=== PATIENT | male | born 1975 | race Two or more races ===

== ENCOUNTER → 2016-12-19 | Outpatient (REF) | payer OTHER ==
[~2016-12-19] MED LIST: ACET65TA; COLA100C2; FLEXERIL; No Historical Meds; PERC5TAB8; VITA500T
== END ==
LOC: M SMT 12:40
PROVIDERS: ATTEND Nurse Practitioner Family
DX: N50.819 Testicular pain, unspecified (principal)

== ENCOUNTER → 2017-03-04 | Outpatient (CLI) | payer OTHER ==
[~2017-03-04] VITALS: Ht 177.8 cm; Wt 95.7 kg
[~2017-03-04] MED LIST changes: +AMBI12.52 PO; +BUPR300T34 PO; +CELE-19 PO; +ESOM1CAP5 PO; +HYDR1CAP25 PO; +LIDO5TD TD; +LIDOCAINE 2% INJ 100 MG/5 ML SDV (FOR ANES.) As Ordered ONE; +NS 1,000 ML IV SCH; +PRAZ2CAP PO; +PRAZ5CAP PO; +PROPOFOL 200 MG/20 ML VIAL As Ordered ONE; +TIZA4CAP3 PO; +TOPA100T8 PO; +TYLE325T5 PO; +VITA100037 PO; +ZOLO100T PO; +[UNRECOGNIZED DRUG - CODE] SC
--- NOTE | 2017-03-04 13:44 | ROOR ---
Patient Name: Anthony Rincon Procedure Date: 03/04/2017 1:31 PM Date of : 1975 Age: 41 Room: [facility] Gender: Male Note Status: Finalized Procedure: Upper GI endoscopy + Biopsies Indications: Heartburn, Failure to respond to medical treatment Providers: Victor M Miramontes MD Referring MD: KRYSTA CHAPARRO MD Requesting Provider: Medicines: Monitored Anesthesia Care Complications: No immediate complications. Procedure: Pre-Anesthesia Assessment: - The heart rate, respiratory rate, oxygen saturations, blood pressure, adequacy of pulmonary ventilation, and response to care were monitored throughout the procedure. The Endoscope was introduced through the mouth, and advanced to the second part of duodenum. The upper GI endoscopy was accomplished without difficulty. The patient tolerated the procedure well. Findings: The Z-line was regular and was found 40 cm from the incisors. Multiple biopsies were obtained with cold forceps for evaluation to rule out Nina's Esophagus randomly at the gastroesophageal junction. No other significant abnormalities were identified in a careful examination of the stomach. The exam of the duodenum was otherwise normal. Impression: - Z-line regular, 40 cm from the incisors. - Multiple biopsies were obtained at the gastroesophageal junction. - The examination was otherwise normal. Recommendation: - Patient has a contact number available for emergencies. The signs and symptoms of potential delayed complications were discussed with the patient. Return to normal activities tomorrow. Written discharge instructions were provided to the patient. - High fiber diet. - Discharge patient to home. - Continue present medications. - Follow an antireflux regimen. - Await pathology results. - Telephone GI clinic for pathology results in 1 week. - Check Portal Online for Path Results.([email or web address]) - The findings and recommendations were discussed with the patient's family. Victor M Miramontes MD Victor M Miramontes MD 03/04/2017 1:43:57 PM This report has been signed electronically. Number of Addenda: 0 Note Initiated On: 03/04/2017 1:31 PM Estimated Blood Loss: Estimated blood loss: none.
[2017-03-04 14:10] VITALS: BP 125/76
== END | disposition home or self-care (01) ==
LOC: M OPP 12:59
PROVIDERS: ATTEND Internal Medicine Gastroenterology
DX: R12 Heartburn (principal); I10 Essential (primary) hypertension; M19.90 Unspecified osteoarthritis, unspecified site; M54.2 Cervicalgia; F41.9 Anxiety disorder, unspecified; F32.9 Major depressive disorder, single episode, unspecified; F43.10 Post-traumatic stress disorder, unspecified; K21.9 Gastro-esophageal reflux disease without esophagitis; R06.83 Snoring; Z87.828 Personal history of other (healed) physical injury and trauma; Z98.1 Arthrodesis status; Z79.899 Other long term (current) drug therapy

== ENCOUNTER → 2017-03-27 | Outpatient (CLI) | payer OTHER ==
[~2017-03-27] MED LIST changes: -LIDOCAINE 2% INJ 100 MG/5 ML SDV (FOR ANES.) As Ordered ONE; -NS 1,000 ML IV SCH; -PROPOFOL 200 MG/20 ML VIAL As Ordered ONE
--- NOTE | 2017-04-02 23:25 | SLEEPCENT ---
DATE OF PROCEDURE: 03/27/2017 INTERPRETATION: Nocturnal polysomnography was performed for the evaluation of sleep apnea syndrome symptoms consisting of excessive daytime sleepiness, impaired cognition, mood disorders, insomnia, snoring, observed apnea, gasping respirations, morning headaches, and nonrestorative sleep. A total of 7 hours and 49 minutes of data was reviewed with 423 minutes of sleep identified. Sleep latency was short at 1.5 minutes. Rapid eye movement (REM) latency was prolonged at 215.5 minutes. All stages of sleep were observed. Sleep efficiency was 91.1%. EKG showed sinus bradycardia with an average heart rate of 58 beats per minute. Speeding and slowing was noted surrounding some respiratory events. There were 39 respiratory events identified of 10 seconds of duration or longer giving an apnea-hypopnea index (AHI) of 5.5. Respiratory event related arousal (RERA) index was 0.6 giving a total respiratory disturbance index (RDI) of 6.1. Mean oxygen saturation for the study was 93% with a minimal recorded value of 86%. Periodic limb movement index was 18.6. IMPRESSION: 1. Obstructive sleep apnea, mild. 2. Periodic limb movement, mild. RECOMMENDATION: Recommend return to the sleep disorder center for determination of pressure therapy. Pending this intervention, alcohol and sedative usage should be avoided and care should be taken when operating a motor vehicle.
== END ==
LOC: M SLEEP 19:44
PROVIDERS: ATTEND Internal Medicine Pulmonary Disease
DX: G47.30 Sleep apnea, unspecified (principal)

== ENCOUNTER → 2017-04-15 | Outpatient (CLI) | payer OTHER | LOC: M SLEEP 19:54 | PROVIDERS: ATTEND Internal Medicine Pulmonary Disease | DX: G47.33 Obstructive sleep apnea (adult) (pediatric) (principal) ==

== ENCOUNTER 2017-05-14 16:14 | Emergency (ER) | payer OTHER ==
[~2017-05-14] VITALS: Ht 177.8 cm; Wt 100.0 kg
[~2017-05-14 16:14] MED LIST changes: -CELE-19 PO; +CELE1CAP4 PO; +TOPA100T12 PO; -TOPA100T8 PO; -VITA100037 PO; +VITA100067 PO
[2017-05-14] MEDS ORDERED: EPIP0.3I2 IM (17:37)
[2017-05-14 18:02] VITALS: BP 118/66
== END 2017-05-14 18:05 | disposition home or self-care (01) ==
LOC: M ED 16:14
DX: T63.91XA Toxic effect of contact with unspecified venomous animal, accidental (unintentional), initial encounter (principal); X58.XXXA Exposure to other specified factors, initial encounter; Y92.9 Unspecified place or not applicable; Y93.9 Activity, unspecified; Y99.8 Other external cause status; F32.9 Major depressive disorder, single episode, unspecified; F41.9 Anxiety disorder, unspecified; G43.909 Migraine, unspecified, not intractable, without status migrainosus; Z79.899 Other long term (current) drug therapy

== ENCOUNTER 2018-10-18 10:14 | Inpatient (IN) | payer OTHER ==
[~2018-10-18] VITALS: Ht 177.8 cm; Wt 116.7 kg
[~2018-10-18 10:14] MED LIST changes: +EPIP0.3I2 IM; +SERTRALINE 100 MG TAB PO SCH; +TIZA4CAP PO; -TIZA4CAP3 PO
[2018-10-18] MEDS ORDERED: MAGN400T PO (10:38)
[2018-10-18] MEDS ORDERED: VITA100T98 PO (10:38)
[2018-10-18] MEDS ORDERED: PANT-23 PO (10:38)
[2018-10-18] MEDS ORDERED: AMOX875T2 (10:38)
[2018-10-18] MEDS ORDERED: CLINDAMYCIN 900 MG in APPROPRIATE DILUENT 1 EA IV ONE (11:30)
[2018-10-18] MEDS ORDERED: methylPREDNISolone INJ 125 MG/2 ML VIAL (J2930) IV ONE (11:30)
[2018-10-18] MEDS ORDERED: MORPHINE 2 MG/ML 1ML SYRINGE (J2270) IV ONE (11:30)
[2018-10-18 11:42] LABS: BASO # 0.1 10^3/uL (0.0-0.2); BASO % 0.4 % (0.0-1.0); EOS # 0.1 10^3/uL (0.0-0.50); EOS % 0.7 % (0.0-3.0); HEMATOCRIT 42.6 % (42.0-52.0); HEMOGLOBIN 14.7 g/dl (13.5-17.5); LYMPH # 2.1 10^3/uL (1.5-4.5); LYMPH % 14.8 % (24.0-44.0); MEAN CORPUSCULAR HEMOGLOBIN 29.3 pg (27.0-33.0); MEAN CORPUSCULAR HGB CONC 34.5 g/dl (32.0-36.5); MONO % 7.2 % (0.0-5.0); NEUTROPHILS # 10.8 10^3/uL (1.8-7.7); NEUTROPHILS % 76.3 % (36.0-66.0); PLATELET COUNT, AUTOMATED 304 10^3/uL (150-450); RED BLOOD COUNT 5.01 10^6/uL (4.30-6.10); WHITE BLOOD COUNT 14.1 10^3/uL (4.0-10.0)
[2018-10-18 12:05] LABS: ERYTHROCYTE SEDIMENTATION RATE 47 mm/hr (0-15)
[2018-10-18] MEDS ORDERED: ONDANSETRON 4MG/2ML VIAL (J2405) IV ONE (12:15)
[2018-10-18] MEDS ORDERED: MORPHINE 4 MG/ML 1ML VIAL/SYRINGE (J2270) IV ONE ×2 (12:15→16:30)
[2018-10-18 12:46] LABS: BLOOD UREA NITROGEN 13 MG/DL (7-18); C REACTIVE PROTEIN QUANTITATIV 7.18 MG/DL (0.00-0.30); CARBON DIOXIDE LEVEL 23 MEQ/L (21-32); CHLORIDE LEVEL 107 MEQ/L (98-107); CREATININE FOR GFR 1.14 MG/DL (0.70-1.30); GLOMERULAR FILTRATION RATE > 60.0 (>60); GLUCOSE, FASTING 98 MG/DL (70-100); POTASSIUM SERUM 4.3 MEQ/L (3.5-5.1); SODIUM LEVEL 137 MEQ/L (136-145)
[2018-10-18] MEDS ORDERED: ISOVUE-370 76% 100ML VIAL (Q9967) As Ordered ONE (12:47)
--- NOTE | 2018-10-18 13:25 | REP ---
Clinical: Swelling along the right side of the nose and maxilla. Technique: Axial contrast enhanced images from the mid skull through the mandible with coronal and sagittal re-formations using 100 ml Isovue 370 intravenous contrast material. Findings: Mucoperiosteal changes along with irregular fluid is identified within the right frontal, bilateral ethmoid and sphenoid sinuses consistent with sinusitis. Subcutaneous inflammatory changes are noted in a right periorbital through right maxillary distribution including soft tissue swelling of the nose and there is a suspected complex ovoid fluid collection with rim enhancement along the right side of the nose in the soft tissues which measures 18.3 x 12.1 x 19.1 mm and consistent with small forming abscess. The osseous structures are intact and there is no evidence for acute fracture. The bilateral orbits are symmetric and normal. Impression: Sinusitis with superficial swelling suggesting associated cellulitis and small forming abscess within the soft tissues along the right side of the nose. Correlation is recommended. Electronically Signed by Patrick Hebert MD 10/18/2018 01:16 P
[2018-10-18] MEDS ORDERED: PIPERACILLIN/TAZOBACTAM SOD 3.375 GM in D5W MINI-BAG PLUS 50 ML IV ONE (14:00)
[2018-10-18] MEDS ORDERED: KETOROLAC 30 MG/ML VIAL (J1885) IV ONE (14:15)
[2018-10-18] MEDS ORDERED: AUGM875T28 PO (15:14)
[2018-10-18] MEDS ORDERED: LANS15CA PO (15:14)
[2018-10-18] MEDS ORDERED: [UNRECOGNIZED DRUG - CODE] SC (15:14)
[2018-10-18] MEDS ORDERED: PRAZ5CAP PO (15:14)
[2018-10-18] MEDS ORDERED: RANI150T PO (15:18)
[2018-10-18] MEDS ORDERED: AMBI10TA PO (15:23)
[2018-10-18] MEDS ORDERED: EPIP0.3I2 INJ (15:23)
[2018-10-18] MEDS ORDERED: HYDR-3363 PO (15:24)
[2018-10-18] MEDS ORDERED: BOTO200I INJ (15:26)
[2018-10-18] MEDS ORDERED: SUMAtriptan SUCCINATE 6 MG/0.5 ML VIAL SC PRN (15:45)
[2018-10-18] MEDS ORDERED: BUPR150T3 PO (15:55)
[2018-10-18] MEDS ORDERED: PILL CRUSHER/CUTTER 1 EACH XX PRN (17:00)
[2018-10-18 18:20] VITALS: BP 136/90
[2018-10-18] MEDS: VANCOMYCIN HCL 1,000 MG, VIAL MATE ADAPTER 1 EACH in D5W 250 ML IV SCH ×2 (18:44→20:17)
[2018-10-18] MEDS: MAGNESIUM OXIDE 400 MG TAB (MAG-OX) PO SCH (18:45)
[2018-10-18] MEDS: VITAMIN D 1,000 INTERNATIONAL UNITS TABLET PO SCH (18:45)
[2018-10-18] MEDS: FAMOTIDINE 20 MG TAB PO SCH (21:39)
[2018-10-18] MEDS: TOPIRAMATE (TopAMAX) 100 MG TAB PO SCH (21:39)
[2018-10-18] MEDS: MORPHINE 4 MG/ML 1ML VIAL/SYRINGE (J2270) IV PRN (21:40)
[2018-10-18 22:00] VITALS: BP 142/81
[2018-10-18] MEDS: PIPERACILLIN/TAZOBACTAM SOD 3.375 GM in D5W MINI-BAG PLUS 50 ML IV SCH (22:44)
--- NOTE | 2018-10-18 22:53 | HPE ---
DATE OF ADMISSION: 10/18/2018 43-year-old male with a past medical history of gastroesophageal reflux disease (GERD), migraine headaches, who presents to the emergency room with increased swelling and pain around his intranasal area and severe tenderness and erythema on the bud of his nose. The patient went to urgent care yesterday and was diagnosed with acute sinusitis and was started on Augmentin, but the pain was unbearable and the swelling worsened so he came to the emergency room for evaluation. Here in the emergency room, he had a facial CT, which showed intranasal abscess in the right naris and elevated white count. The patient was given a dose of IV clindamycin and Dr. Nunez of ENT was made aware. He does not recommend any surgical intervention at this time. He denies any subjective feeling of fever, aches or chills. No visual disturbances. He will be admitted for further management. PAST MEDICAL HISTORY: 1. Gastroesophageal reflux disease (GERD). 2. Migraines. 3. Obstructive sleep apnea. ALLERGIES: He has no known drug allergies. FAMILY HISTORY: Noncontributory. SOCIAL HISTORY: The patient denies tobacco, alcohol or illicit drugs. MEDICATIONS: He takes at home: - Augmentin 875/125 one tablet orally twice a day - hydroxyzine 25 mg as needed - lansoprazole 50 mg orally twice a day - magnesium oxide 400 mg orally daily - pantoprazole 40 mg orally daily - ranitidine 150 mg orally twice a day - riboflavin 200 mg orally twice a day - sertraline 250 mg orally daily - sumatriptan 6 mg subcutaneously as needed - Topamax 100 mg orally twice a day - vitamin D 1000 units orally daily - Ambien 10 mg orally at bedtime REVIEW OF SYSTEMS: Negative for all ten major systems except what is mentioned in the history of present illness. PHYSICAL EXAMINATION: VITAL SIGNS: Blood pressure 123/73, heart rate is 74 and regular, respiratory rate is 18, temperature 99, oxygen saturation is 94% on room air. Head is atraumatic, normocephalic. Neck is supple with no jugular venous distention (JVD). Erythema of the nasal area with swelling in the right turbinate. No purulent discharge noted. Pain on palpation of his maxillary and frontal sinus region. Lungs clear to auscultation. S1, S2 audible. No murmurs appreciated. Abdomen is soft. Positive bowel sounds. No pedal edema. Skin is intact. Neurologic examination, the patient is awake, alert and oriented times three. LABORATORIES: WBC 14.1, hemoglobin is 14.7, hematocrit 42.6, platelets are 304,000. Sodium 137, potassium 4.3, chloride 107, CO2 of 23, BUN 13, creatinine 1.4, glucose 98. IMPRESSION: Intranasal abscess. PLAN: The patient is to be admitted to the medical/surgical floor. I am going to start the patient on IV Zosyn and vancomycin and have Dr. Nunez consulted officially. We will continue preadmission medications and give him morphine for his pain. We will continue his care on the medical/surgical floor.
[2018-10-18] MEDS: zolPIDEM TARTRATE 10MG TAB PO PRN (23:11)
[2018-10-18] MEDS: KETOROLAC 30 MG/ML VIAL (J1885) IV PRN (23:11)
[2018-10-18] MEDS ORDERED: ACETAMINOPHEN TAB 650MG DOSE (2X325MG) PO PRN (23:15)
[2018-10-19] MEDS: PIPERACILLIN/TAZOBACTAM SOD 3.375 GM in D5W MINI-BAG PLUS 50 ML IV SCH ×4 (02:00→20:27)
[2018-10-19] MEDS: VANCOMYCIN HCL 1,000 MG, VIAL MATE ADAPTER 1 EACH in D5W 250 ML IV SCH ×3 (03:00→22:19)
[2018-10-19 06:00] VITALS: BP 116/63
[2018-10-19] MEDS: FAMOTIDINE 20 MG TAB PO SCH ×2 (08:20→20:23)
[2018-10-19] MEDS: MAGNESIUM OXIDE 400 MG TAB (MAG-OX) PO SCH (08:21)
[2018-10-19] MEDS: TOPIRAMATE (TopAMAX) 100 MG TAB PO SCH ×2 (08:21→20:23)
[2018-10-19] MEDS: VITAMIN D 1,000 INTERNATIONAL UNITS TABLET PO SCH (08:21)
[2018-10-19] MEDS: MORPHINE 4 MG/ML 1ML VIAL/SYRINGE (J2270) IV PRN ×2 (08:32→13:50)
[2018-10-19] MEDS: KETOROLAC 30 MG/ML VIAL (J1885) IV PRN ×2 (09:47→15:54)
--- NOTE | 2018-10-19 12:11 | IPNPDOC ---
Date Seen The patient was seen on 10/19/18. Progress Note SUBJECTIVE: Patient seen and examined at bedside, in no apparent distress, no acute nightly events on day 2 of vancomycin and zosyn for intranasal cellulits ? early abscess OBJECTIVE PHYSICAL EXAMINATION: VITAL SIGNS: Please see below. GENERAL: well nourished, no acute distress HEENT: induration and erythema nares and swelling of turbinates CARDIOVASCULAR: regular, rate and rhythm, normal s1 and s2, no MGR RESPIRATORY: clear to auscultation, no crackles or wheezing ABDOMINAL: soft, non tender, non distended, + BS EXTREMITIES: no edema, no calf tenderness NEUROLOGICAL: alert and oriented X 3. no focal deficits PSYCHOLOGICAL: normal mood and affect LABORATORY DATA, IMAGING STUDIES, MICROBIOLOGY: Please see below. DVT prophylaxis ordered?: lovenox ASSESSMENT AND PLAN: 43 year old presents with nasal swelling , redness pain. PROBLEMS: 1. Nasal cellulitis/ ? early abscess formation: failed outpt therapy with augmentin, continue Vancomycin and zosyn. CT maxillofacial noted. pain control, zofran prn . ENT consulted 2. Migraines: continue imitrex and topomax 3. LOW: LOW protocol 4. depression: zoloft 5. GERD: pepcid VS, I&O, 24H, Fishbone Vital Signs/I&O Vital Signs Date Time Temp Pulse Resp B/P (MAP) Pulse Ox O2 Delivery O2 Flow Rate FiO2 10/19/18 08:44 16 10/19/18 06:00 98.6 81 116/63 (80) 96 Room Air I&O- Last 24 Hours up to 6 AM 10/19/18 06:00 Intake Total 710 ml Output Total 0 ml Balance 710 ml FRIDAY,CJ WARREN Oct 19, 2018 12:11
[2018-10-19 14:00] VITALS: BP 131/84
[2018-10-19] MEDS ORDERED: MORPHINE 4 MG/ML 1ML VIAL/SYRINGE (J2270) IV ONE (18:15)
[2018-10-19] MEDS: SODIUM CHLORIDE NASAL 0.65% SPRAY BTL (OCEAN) SCH (20:23)
[2018-10-19] MEDS: SERTRALINE 100 MG TAB PO SCH (20:23)
[2018-10-19] MEDS: FLUTICASONE PROP 0.05% NASAL SPRAY 16 GM (FLONASE) NARES SCH (20:24)
[2018-10-19] MEDS: MUPIROCIN 2% OINT 22 GM TUBE TOP SCH (20:24)
[2018-10-19 22:00] VITALS: BP 131/84
[2018-10-19] MEDS: zolPIDEM TARTRATE 10MG TAB PO PRN (22:19)
[2018-10-19] MEDS: buPROPion **XL** TABLET 150MG (WELLBUTRIN XL) PO SCH (23:52)
[2018-10-20] MEDS: VANCOMYCIN HCL 1,000 MG, VIAL MATE ADAPTER 1 EACH in D5W 250 ML IV SCH ×2 (03:00→11:00)
[2018-10-20] MEDS: PIPERACILLIN/TAZOBACTAM SOD 3.375 GM in D5W MINI-BAG PLUS 50 ML IV SCH ×4 (03:04→20:45)
[2018-10-20] MEDS: MORPHINE 4 MG/ML 1ML VIAL/SYRINGE (J2270) IV PRN ×4 (04:26→18:29)
[2018-10-20] MEDS: KETOROLAC 30 MG/ML VIAL (J1885) IV PRN (05:39)
[2018-10-20 06:00] VITALS: BP 131/82
[2018-10-20 06:25] LABS: HEMATOCRIT 41.2 % (42.0-52.0); HEMOGLOBIN 13.7 g/dl (13.5-17.5); MEAN CORPUSCULAR HEMOGLOBIN 29.3 pg (27.0-33.0); MEAN CORPUSCULAR HGB CONC 33.3 g/dl (32.0-36.5); PLATELET COUNT, AUTOMATED 283 10^3/uL (150-450); RED BLOOD COUNT 4.68 10^6/uL (4.30-6.10); WHITE BLOOD COUNT 8.1 10^3/uL (4.0-10.0)
[2018-10-20 06:51] LABS: CALCIUM LEVEL 8.3 MG/DL (8.5-10.1); CREATININE FOR GFR 1.4 MG/DL (0.70-1.30); GLOMERULAR FILTRATION RATE 59.2 (>60); POTASSIUM SERUM 3.8 MEQ/L (3.5-5.1)
[2018-10-20] MEDS: NS 1,000 ML IV SCH ×2 (08:45→17:05)
[2018-10-20] MEDS: FLUTICASONE PROP 0.05% NASAL SPRAY 16 GM (FLONASE) NARES SCH ×2 (09:00→20:53)
[2018-10-20] MEDS: MUPIROCIN 2% OINT 22 GM TUBE TOP SCH ×3 (09:00→20:53)
[2018-10-20] MEDS ORDERED: buPROPion **XL** TABLET 150MG (WELLBUTRIN XL) PO SCH (09:00)
[2018-10-20] MEDS: SODIUM CHLORIDE NASAL 0.65% SPRAY BTL (OCEAN) SCH ×3 (09:00→20:52)
[2018-10-20] MEDS: FAMOTIDINE 20 MG TAB PO SCH ×2 (10:00→20:52)
[2018-10-20] MEDS: TOPIRAMATE (TopAMAX) 100 MG TAB PO SCH ×2 (10:00→20:52)
[2018-10-20] MEDS: MAGNESIUM OXIDE 400 MG TAB (MAG-OX) PO SCH (10:00)
[2018-10-20] MEDS: VITAMIN D 1,000 INTERNATIONAL UNITS TABLET PO SCH (10:01)
[2018-10-20] MEDS: HEPARIN SOD (PORCINE) 5000 UNITS/ML VIAL SQ SCH ×2 (10:02→20:46)
--- NOTE | 2018-10-20 10:21 | CR ---
DATE OF CONSULTATION: 10/19/2018 REASON FOR CONSULTATION: Right intranasal abscess. HISTORY OF PRESENT ILLNESS: This 43-year-old man presented to the [facility] emergency department yesterday with a 2-week history of upper respiratory tract infection. He has noticed increasing swelling of the right periorbital region as well as swelling of the right intranasal area about 3 days prior to the presentation to the emergency department. He was seen at the urgent care where he received a prescription for Augmentin. He did not respond to the oral antibiotic. As a result, he presented to the [facility] emergency department for further evaluation. The patient denies visual disturbance, intractable headache, fevers or chills. He has no prior history of sinus surgery. He has been admitted and placed on broad-spectrum IV antibiotics including vancomycin and Zosyn. Since the IV antibiotic treatment, patient is noticing significant decrease in the swelling around the right periorbital region. He has also noticed some drainage now from the right nostril. PAST MEDICAL HISTORY: Obstructive sleep apnea. Migraine Esophageal reflux disease. ALLERGIES: No known drug allergies. FAMILY HISTORY: Noncontributory. SOCIAL HISTORY: Patient denies use of illicit drugs tobacco or alcohol. MEDICATIONS: - hydroxyzine - pantoprazole - magnesium oxide - ranitidine - riboflavin - sertraline - sumatriptan - Topamax - vitamin D - Ambien REVIEW OF SYSTEMS: Negative except as noted above. PHYSICAL EXAMINATION: On examination, patient appears in mild distress due to tenderness from the right nostril. Vital signs stable. Afebrile. Nose: Erythematous right nasal tip. Swelling noted over the right lower scleral area. Discharge noted hear the apex of the right nostril. Swabs were taken for culture and sensitivity, Gram stain and anerobic cultures. Moist oral mucosa. Floor of mouth not elevated. Tongue mobile. Neck: No palpable cervical lymphadenopathy. Trachea midline. No thyromegaly. Imaging studies: I reviewed the CT of the sinuses images and report done on 10/18/2018. Subcutaneous changes right periorbital region. Complex ovoid fluid collection along the right side of the nose in the soft tissue at the tip of the nose. It measures 18 x 12 x 19 mm. No evidence of acute fracture. Both orbits symmetric and normal. LABS: WBC 14, hemoglobin 14.7, platelet 304, ESR 47. Electrolytes normal. C-reactive protein 7.1. IMPRESSION: This is a 43-year-old man who presented to the hospital with a right intranasal abscess. PLAN: I am in agreement with the IV Zosyn and vancomycin to provide broad-spectrum antibiotic coverage. A swab has been done on the right intranasal discharge. At this time, I have added saline nasal spray, Flonase as well as mupirocin ointment to be applied to both sides of the nasal cavity to facilitate current episodes of infection.
[2018-10-20 10:46] LABS: C REACTIVE PROTEIN QUANTITATIV 3.36 MG/DL (0.00-0.30); VANCOMYCIN LEVEL TROUGH 23.1 UG/ML (10.0-20.0)
--- NOTE | 2018-10-20 11:02 | REP ---
Clinical: Acute renal insufficiency. Technique: Real time alvarado scale ultrasound examination using curved array transducer. Findings: Bilateral kidneys are normal in contour, size, echogenicity, and reniform shape without hydronephrosis, nephrolithiasis, cystic or renal mass lesion. Right kidney measures 11.0 x 4.9 x 4.6 cm. Left kidney measures 11.6 x 4.8 x 5.5 cm. Bladder is under distended but grossly normal and currently measures 7.4 x 5.5 x 6.1 cm. Impression: Normal kidneys and bladder. No hydronephrosis. Electronically Signed by Patrick Hebert MD 10/20/2018 10:53 A
[2018-10-20] MEDS ORDERED: LIDOCAINE W/EPINEPHRINE 1% 20ML VIAL SC STA (11:40)
[2018-10-20] MEDS: SODIUM CHLORIDE 0.9% INJ 10 ML SYR XX SCH ×2 (12:00→20:53)
[2018-10-20] MEDS ORDERED: MORPHINE 4 MG/ML 1ML VIAL/SYRINGE (J2270) IV ONE (12:15)
[2018-10-20 14:00] VITALS: BP 116/64
[2018-10-20] MEDS: VANCOMYCIN HCL 750 MG, VIAL MATE ADAPTER 1 EACH in D5W 250 ML IV SCH (14:10)
[2018-10-20] MEDS: PERCOCET 5MG/325MG TAB PO PRN ×2 (14:11→20:47)
[2018-10-20 14:33] LABS: POTASSIUM RANDOM URINE 34.2 MEQ/L; TOTAL PROTEIN,RANDOM URINE 22.1 MG/DL (0.0-12.0)
[2018-10-20] MEDS: VANCOMYCIN HCL 500 MG in D5W MINI-BAG PLUS 100 ML IV SCH (15:38)
[2018-10-20] MEDS: LACTOBACILLUS ACIDOPHILUS CAP (BACID) PO SCH (17:17)
[2018-10-20] MEDS: SERTRALINE 100 MG TAB PO SCH (20:46)
[2018-10-20] MEDS: buPROPion **XL** TABLET 150MG (WELLBUTRIN XL) PO SCH (20:46)
[2018-10-20 22:00] VITALS: BP 139/70
[2018-10-20] MEDS: zolPIDEM TARTRATE 10MG TAB PO PRN (22:33)
[2018-10-21] MEDS: PIPERACILLIN/TAZOBACTAM SOD 3.375 GM in D5W MINI-BAG PLUS 50 ML IV SCH ×4 (02:05→20:10)
[2018-10-21] MEDS: VANCOMYCIN HCL 750 MG, VIAL MATE ADAPTER 1 EACH in D5W 250 ML IV SCH ×2 (03:17→15:18)
[2018-10-21] MEDS: VANCOMYCIN HCL 500 MG in D5W MINI-BAG PLUS 100 ML IV SCH ×2 (04:37→17:09)
[2018-10-21] MEDS: PERCOCET 5MG/325MG TAB PO PRN ×2 (05:50→16:50)
[2018-10-21 06:00] VITALS: BP 124/66
[2018-10-21 06:05] LABS: HEMATOCRIT 38.9 % (42.0-52.0); HEMOGLOBIN 12.8 g/dl (13.5-17.5); MEAN CORPUSCULAR HEMOGLOBIN 29.4 pg (27.0-33.0); MEAN CORPUSCULAR HGB CONC 32.9 g/dl (32.0-36.5); MEAN CORPUSCULAR VOLUME 89.2 fl (80.0-96.0); PLATELET COUNT, AUTOMATED 281 10^3/uL (150-450); RED BLOOD COUNT 4.36 10^6/uL (4.30-6.10); WHITE BLOOD COUNT 6.4 10^3/uL (4.0-10.0)
[2018-10-21 06:35] LABS: BLOOD UREA NITROGEN 15 MG/DL (7-18); C REACTIVE PROTEIN QUANTITATIV 2.05 MG/DL (0.00-0.30); CALCIUM LEVEL 8.1 MG/DL (8.5-10.1); CARBON DIOXIDE LEVEL 27 MEQ/L (21-32); CHLORIDE LEVEL 110 MEQ/L (98-107); CREATININE FOR GFR 1.33 MG/DL (0.70-1.30); GLOMERULAR FILTRATION RATE > 60.0 (>60); GLUCOSE, FASTING 118 MG/DL (70-100); MAGNESIUM LEVEL 2.4 MG/DL (1.8-2.4); POTASSIUM SERUM 3.9 MEQ/L (3.5-5.1); SODIUM LEVEL 141 MEQ/L (136-145)
[2018-10-21] MEDS: MAGNESIUM OXIDE 400 MG TAB (MAG-OX) PO SCH (08:28)
[2018-10-21] MEDS: FAMOTIDINE 20 MG TAB PO SCH ×2 (08:28→20:09)
[2018-10-21] MEDS: VITAMIN D 1,000 INTERNATIONAL UNITS TABLET PO SCH (08:28)
[2018-10-21] MEDS: LACTOBACILLUS ACIDOPHILUS CAP (BACID) PO SCH ×3 (08:28→18:04)
[2018-10-21] MEDS: HEPARIN SOD (PORCINE) 5000 UNITS/ML VIAL SQ SCH ×2 (08:28→20:10)
[2018-10-21] MEDS: TOPIRAMATE (TopAMAX) 100 MG TAB PO SCH ×2 (08:29→20:10)
[2018-10-21] MEDS: SODIUM CHLORIDE NASAL 0.65% SPRAY BTL (OCEAN) SCH ×3 (08:29→20:10)
[2018-10-21] MEDS: FLUTICASONE PROP 0.05% NASAL SPRAY 16 GM (FLONASE) NARES SCH ×2 (08:30→20:11)
[2018-10-21] MEDS: MUPIROCIN 2% OINT 22 GM TUBE TOP SCH ×3 (08:30→20:10)
[2018-10-21] MEDS: SODIUM CHLORIDE 0.9% INJ 10 ML SYR XX SCH ×2 (08:31→20:09)
[2018-10-21] MEDS: MORPHINE 4 MG/ML 1ML VIAL/SYRINGE (J2270) IV PRN (08:32)
--- NOTE | 2018-10-21 13:54 | PHACANCOPD ---
PHARMACY VANCOMYCIN DOSING Pt Demographics Demographics Patient Age:43 , Weight:116.700 , Gender: male Adjusted Body Weight Date: 10/21/18, Adjusted Body Weight: Kg Events Past 24 Hours Events Past 24 Hours: NO: Dialysis, Diuretic Therapy, Change in CrCl, Fever, Elevation in WBC, Pending Diagnostics, Pending Procedures, Other Vancomycin Vancomycin Target Ranges: 10-20 mcg/ml Vancomycin Load Y/N: Yes Load Dose Date Time Vancomycin Load Dose: 2GM Date: 10/18/18 Time: 1900 Vancomycin Dose Date: 10/21/18. Current Vancomycin Dose: Intermittent Dosing?: No Labs Labs Item Value Date Time Vancomycin Level Trough 17.2 UG/ML 10/21/18 1306 Vancomycin Level Trough 23.1 UG/ML H 10/20/18 1000 Creatinine 1.33 MG/DL H 10/21/18 0537 Creatinine 1.40 MG/DL H 10/20/18 0554 Creatinine 1.14 MG/DL 10/18/18 1130 White Blood Count 6.4 10^3/uL 10/21/18 0537 White Blood Count 8.1 10^3/uL 10/20/18 0554 White Blood Count 14.1 10^3/uL H 10/18/18 1130 Micro Microbiology 10/20/18 Clostridium difficile (PCR) - Final, Complete 10/20/18 MRSA Screen - Final, Complete 10/19/18 Eye/Ear/Nose/Throat Culture - Preliminary, Resulted Staphylococcus Aureus 10/20/18 Abscess Culture, Received Pending 10/19/18 Anaerobic Culture, Received Pending Creatinine Clearance Date:10/21/18. Creatinine Clearance: . Assessment and Plan Maintaining Current Dose?: Yes Reason for dose change: No Dose Change Pharmacist Note Pharmacist Note Date: 10/21/18. Pharmacist note: Trough today resulted at 17.2mcg/ml. This is within our goal. We will continue current dose of 1250mg IV Q12H@1400. We will continue to monitor and adjust dose as needed. JORGE HOFFMAN PHARMACY Oct 21, 2018 13:54
[2018-10-21 14:00] VITALS: BP 133/78
--- NOTE | 2018-10-21 15:09 | IPN ---
DATE OF SERVICE: 10/20/2018 The patient seen and examined status post drainage of abscess by Dr. Richmond, currently reporting some pain to nose. Denies any chest pain, pressure or discomfort. Does report diarrhea 3 times overnight. VITAL SIGNS: Temperature 97.2, pulse 76, respirations 17, blood pressure 116/64, pulse oximetry 97% on room air. LABORATORY: White blood cell (WBC) 8.1, hemoglobin and hematocrit (H and H) 13.7/41.2, platelets 283. Sodium 139, potassium 3.8, chloride 106, bicarbonate 26, BUN 19, creatinine 1.4. C-reactive protein 3.36. PHYSICAL EXAMINATION: GENERAL: The patient is well nourished in no acute distress. HEENT: Mild induration, erythema of the patient's naris and swelling of nasal turbinate. PULMONARY: Bilaterally clear. CARDIAC: Regular. S1, S2. ABDOMEN: Soft, nontender, positive bowel sounds. EXTREMITIES: No clubbing, cyanosis or edema. ASSESSMENT AND PLAN: This is a 43-year-old male patient with underlying medical history of gastroesophageal reflux disease (GERD), migraines, obstructive sleep apnea presented with increased swelling and pain around patient's intranasal area with tenderness and erythema found to have a nasal cellulitis and early abscess. 1. Nasal cellulitis and abscess. ENT on consult. Patient failed outpatient antibiotics currently on Zosyn and vancomycin. Cultures show Staphylococcus aureus pending speciation and sensitivity. Further recommendations per ENT. Continue to follow. 2. Depression. Continue current medications. 3. Diarrhea. Will order Clostridium difficile (C. diff). Probiotics have been added. 4. History of migraines. Continue current medications. 5. Obstructive sleep apnea. Obstructive sleep apnea (LOW) protocol. 6. Gastroesophageal reflux disease (GERD). Continue current medication. 7. Acute elevation of creatinine likely secondary to medication. Toradol has been discontinued. Vancomycin trough appreciated. Vancomycin dose has been adjusted by pharmacy. Intravenous (IV) fluids have been given. Renal ultrasound has been appreciated. Will continue to monitor. Deep vein thrombosis (DVT) prophylaxis: Heparin subcutaneously. DISPOSITION: Pending further recommendations per ENT.
--- NOTE | 2018-10-21 16:11 | IPNPDOC ---
Text Note Date of Service The patient was seen on 10/21/18. NOTE The patient seen and examined. Currently reporting some pain to nose. Denies any chest pain, pressure or discomfort. Does report diarrhea. PHYSICAL EXAMINATION: GENERAL: The patient is well nourished in no acute distress. HEENT: Mild induration, erythema of the patient's naris and swelling of nasal turbinate. PULMONARY: Bilaterally clear. CARDIAC: Regular. S1, S2. ABDOMEN: Soft, nontender, positive bowel sounds. EXTREMITIES: No clubbing, cyanosis or edema. ASSESSMENT AND PLAN: This is a 43-year-old male patient with underlying medical history of gastroesophageal reflux disease (GERD), migraines, obstructive sleep apnea presented with increased swelling and pain around patient's intranasal area with tenderness and erythema found to have a nasal cellulitis and early abscess. 1. Nasal cellulitis and abscess. ENT on consult. Patient failed outpatient antibiotics currently on Zosyn and vancomycin. Cultures show Staphylococcus aureus pending speciation and sensitivity. Further recommendations per ENT. Continue to follow. 2. Depression. Continue current medications. 3. Diarrhea. Clostridium difficile (C. diff) neg. Probiotics have been added. 4. History of migraines. Continue current medications. 5. Obstructive sleep apnea. Obstructive sleep apnea (LOW) protocol. 6. Gastroesophageal reflux disease (GERD). Continue current medication. 7. Acute elevation of creatinine likely secondary to medication. Toradol has been discontinued. Vancomycin trough appreciated. Vancomycin dose has been adjusted by pharmacy. Intravenous (IV) fluids have been given. Renal ultrasound has been appreciated. Will continue to monitor. Deep vein thrombosis (DVT) prophylaxis: Heparin subcutaneously. DISPOSITION: Pending further recommendations per ENT.and pending sensitivities VS,Cassi, I+O VS, Cassi, I+O Laboratory Tests 10/21/18 05:37 Red Blood Count 4.36, Mean Corpuscular Volume 89.2, Mean Corpuscular Hemoglobin 29.4, Mean Corpuscular Hemoglobin Concent 32.9, Red Cell Distribution Width 12.6, Calcium Level 8.1 L Vital Signs Date Time Temp Pulse Resp B/P (MAP) Pulse Ox O2 Delivery O2 Flow Rate FiO2 10/21/18 14:00 97.2 70 16 133/78 (96) 97 Room Air 10/20/18 12:25 2.0 I&O- Last 24 Hours up to 6 AM 10/21/18 06:00 Intake Total 2900 ml Output Total 2350 ml Balance 550 ml TERRANCE SILVA MD Oct 21, 2018 16:11
[2018-10-21 20:00] VITALS: BP 137/89
[2018-10-21] MEDS: SERTRALINE 100 MG TAB PO SCH (20:09)
[2018-10-21] MEDS: buPROPion **XL** TABLET 150MG (WELLBUTRIN XL) PO SCH (20:10)
[2018-10-21] MEDS: zolPIDEM TARTRATE 10MG TAB PO PRN (22:25)
[2018-10-22] MEDS: PIPERACILLIN/TAZOBACTAM SOD 3.375 GM in D5W MINI-BAG PLUS 50 ML IV SCH (01:02)
[2018-10-22] MEDS: VANCOMYCIN HCL 750 MG, VIAL MATE ADAPTER 1 EACH in D5W 250 ML IV SCH (01:56)
[2018-10-22] MEDS: VANCOMYCIN HCL 500 MG in D5W MINI-BAG PLUS 100 ML IV SCH (03:59)
[2018-10-22 04:00] VITALS: BP 133/80
[2018-10-22 06:29] LABS: HEMATOCRIT 39.2 % (42.0-52.0); HEMOGLOBIN 13.3 g/dl (13.5-17.5); MEAN CORPUSCULAR HEMOGLOBIN 29.8 pg (27.0-33.0); MEAN CORPUSCULAR HGB CONC 33.9 g/dl (32.0-36.5); MEAN CORPUSCULAR VOLUME 87.7 fl (80.0-96.0); PLATELET COUNT, AUTOMATED 281 10^3/uL (150-450); RED BLOOD COUNT 4.47 10^6/uL (4.30-6.10); WHITE BLOOD COUNT 6.9 10^3/uL (4.0-10.0)
[2018-10-22 06:52] LABS: BLOOD UREA NITROGEN 11 MG/DL (7-18); C REACTIVE PROTEIN QUANTITATIV 1.28 MG/DL (0.00-0.30); CALCIUM LEVEL 8.2 MG/DL (8.5-10.1); CARBON DIOXIDE LEVEL 24 MEQ/L (21-32); CHLORIDE LEVEL 110 MEQ/L (98-107); CREATININE FOR GFR 1.34 MG/DL (0.70-1.30); GLOMERULAR FILTRATION RATE > 60.0 (>60); GLUCOSE, FASTING 86 MG/DL (70-100); MAGNESIUM LEVEL 2.3 MG/DL (1.8-2.4); POTASSIUM SERUM 4.2 MEQ/L (3.5-5.1); SODIUM LEVEL 142 MEQ/L (136-145)
[2018-10-22] MEDS ORDERED: MUPI2OI TOP (08:36)
[2018-10-22] MEDS ORDERED: OCEA0.654 (08:36)
[2018-10-22] MEDS ORDERED: BACI1CAP PO (08:36)
[2018-10-22] MEDS ORDERED: FLUTISP NARES (08:36)
[2018-10-22] MEDS ORDERED: CEFD1CAP8 PO (08:36)
[2018-10-22] MEDS ORDERED: SLF XX (08:36)
[2018-10-22] MEDS: LACTOBACILLUS ACIDOPHILUS CAP (BACID) PO SCH (08:39)
[2018-10-22] MEDS ORDERED: CLIN150C14 PO (08:44)
[2018-10-22] MEDS ORDERED: VANCOMYCIN HCL 750 MG, VIAL MATE ADAPTER 1 EACH in D5W 250 ML IV SCH (08:45)
[2018-10-22] MEDS ORDERED: cefTRIAXone SOD 2 GM in D5W MINI-BAG PLUS 50 ML IV SCH (09:00)
[2018-10-22] MEDS: FAMOTIDINE 20 MG TAB PO SCH (09:14)
[2018-10-22] MEDS: VITAMIN D 1,000 INTERNATIONAL UNITS TABLET PO SCH (09:14)
[2018-10-22] MEDS: TOPIRAMATE (TopAMAX) 100 MG TAB PO SCH (09:14)
[2018-10-22] MEDS: MAGNESIUM OXIDE 400 MG TAB (MAG-OX) PO SCH (09:15)
[2018-10-22] MEDS: SODIUM CHLORIDE NASAL 0.65% SPRAY BTL (OCEAN) SCH (09:16)
[2018-10-22] MEDS: HEPARIN SOD (PORCINE) 5000 UNITS/ML VIAL SQ SCH (09:16)
[2018-10-22] MEDS: FLUTICASONE PROP 0.05% NASAL SPRAY 16 GM (FLONASE) NARES SCH (09:16)
[2018-10-22] MEDS: MUPIROCIN 2% OINT 22 GM TUBE TOP SCH (09:17)
[2018-10-22] MEDS: SODIUM CHLORIDE 0.9% INJ 10 ML SYR XX SCH (09:18)
--- NOTE | 2018-10-22 19:59 | DSES ---
DATE OF ADMISSION: 10/18/2018 DATE OF DISCHARGE: 10/22/2018 ENT PROVIDER: Dr. Lang Nunez PRIMARY CARE PROVIDER: [facility] FINAL DIAGNOSIS: Nasal cellulitis and abscess. Depression. Diarrhea. History of migraine. History of obstructive sleep apnea. Gastroesophageal reflux disease (GERD). Acute kidney injury (ZEENAT). HISTORY OF THE PRESENT ILLNESS: This is a 43-year-old male patient with underlying medical history of GERD, migraine, obstructive sleep apnea, presented to the emergency room with increased swelling and pain along his intranasal area, as well as severe tenderness and erythema on the septum of his nose. The patient was in urgent care prior to admission, was diagnosed with acute sinusitis, treated with Augmentin but the pain was unbearable with significantly worsened swelling. The patient went to the emergency room. CT scan showed intranasal abscess in the right naris with leukocytosis, initially started on intravenous (IV) clindamycin. Ear, Nose and Throat (ENT) was consulted. HOSPITAL COURSE: During the hospital course, antibiotics were escalated to vancomycin and Zosyn, given leukocytosis and cultures were sent. Status post drainage by ENT. Patient developed diarrhea. Clostridium difficile (C diff) was negative. Initially the patient's nose culture grew Staphylococcus aureus with negative methicillin-resistant Staphylococcus aureus (MRSA) screening but on the last day of admission, the patient's Staphylococcus aureus culture with final sensitivity shows MRSA. Subsequently, Zosyn was discontinued. Patient was kept on vancomycin, to be discharged on clindamycin. The case was discussed with Dr. Lang Nunez who agreed with the current management and would like to follow the patient as an outpatient. The patient was also placed on saline nasal wash, as well as saline nasal spray, as well as Bactroban nasal ointment by ENT provider. Probiotics was also provided. Patient currently comfortable, in no acute distress, tolerating oral with no respiratory complaint, ready to be discharged for further care as an outpatient. Hospital course complicated with acute kidney injury. Patient was given IV fluids with resolution. Toradol was discontinued. Vancomycin dose was adjusted. VITAL SIGNS: Temperature 98.8, pulse 71, respirations 18, blood pressure 133/80, pulse oximetry 98% on room air. PHYSICAL EXAMINATION: GENERAL: Patient alert, comfortable, in no acute distress. HEENT: Mild induration around patient's right naris. Minimal erythema, much improved. PULMONARY: Bilateral clear. CARDIAC: Regular, S1, S2. ABDOMEN: Soft, nontender. Positive bowel sounds. LABORATORY: WBC 6.9, hemoglobin and hematocrit 13.3 over 39.2, platelets 281. Chemistry: Sodium 142, potassium 4.2, chloride 110, bicarbonate 24, BUN 11, creatinine 1.34. C-reactive protein initially 7.18, improved to 1.28. DISCHARGE MEDICATIONS: - probiotics one capsule by mouth three times a day - clindamycin 300 mg by mouth three times a day for 10 days - Flonase nasal spray twice a day - Bactroban 2% ointment three times a day - saline nasal spray three times a day - sodium chloride irrigation 20 mL each nostril twice a day as directed - Patient's home medication of bupropion 150 mg by mouth daily was continued. - hydroxyzine 25 mg by mouth as needed. - lansoprazole 15 mg by mouth twice a day - magnesium oxide 400 mg by mouth daily - Protonix 40 mg by mouth daily - prazosin 5 mg by mouth nightly - ranitidine 150 mg by mouth twice a day - vitamin B2 200 mg by mouth twice a day - Zoloft 250 mg by mouth daily - sumatriptan subcu 6 mg as needed - Topamax 100 mg by mouth twice a day - vitamin D 1000 units by mouth daily - Ambien 10 mg by mouth nightly as needed DISCHARGE INSTRUCTIONS: Please see primary care provider in [address] Nunez, ENT, in 7 days. Return to the hospital if symptoms worsen. Nasal irrigation and care as per order recommended by ENT.
== END 2018-10-22 11:15 | disposition home or self-care (01) | DRG 155 ==
LOC: M ED 10:14 → M ED INP 15:40 → M MS5PR 18:10
PROVIDERS: ADMIT Internal Medicine; ATTEND Hospitalist
DX: J34.0 Abscess, furuncle and carbuncle of nose (principal); N17.9 Acute kidney failure, unspecified; F32.9 Major depressive disorder, single episode, unspecified; R19.7 Diarrhea, unspecified; G43.909 Migraine, unspecified, not intractable, without status migrainosus; G47.33 Obstructive sleep apnea (adult) (pediatric); K21.9 Gastro-esophageal reflux disease without esophagitis; B95.62 Methicillin resistant Staphylococcus aureus infection as the cause of diseases classified elsewhere; Z79.899 Other long term (current) drug therapy

== ENCOUNTER 2021-03-16 10:15 | Emergency (ER) | payer OTHER ==
[~2021-03-16] VITALS: Ht 172.7 cm; Wt 116.0 kg
[~2021-03-16 10:15] MED LIST changes: +AMBI10TA PO; +AMOX875T2; +AUGM875T28 PO; +BACI1CAP PO; +BOTO200I INJ; +BUPR150T12 PO; -BUPR300T34 PO; +BUPR300T92 PO; +CEFD1CAP8 PO; +CLIN150C15 PO; +EPIP0.3I2 INJ; +FLUTISP NARES; +HYDR-3363 PO; +LANS15CA PO; +MAGN400T3 PO; +MUPI2OI TOP; +OCEA0.654; +PANT-23 PO; +RANI150T PO; -SERTRALINE 100 MG TAB PO SCH; +SLF XX; +VITA100T98 PO; +[UNRECOGNIZED DRUG - CODE] SC
--- NOTE | 2021-03-16 11:04 | REP ---
INDICATION: TRAUMA COMPARISON: None. TECHNIQUE: AP, lateral, bilateral oblique views right foot. FINDINGS: The osseous structures and joint spaces are intact and normal. There is no evidence for acute fracture or dislocation. Surrounding soft tissues are unremarkable. No subcutaneous emphysema or radiodense foreign body. IMPRESSION: . No acute fracture or dislocation. <Electronically signed by Patrick Hebert > 03/16/21 1100
--- NOTE | 2021-03-16 11:04 | REP ---
INDICATION: TRAUMA COMPARISON: None. TECHNIQUE: AP, lateral, bilateral oblique views. FINDINGS: No acute fracture or dislocation. Skeletal structures and joint spaces are intact and normal. Ankle mortise appears stable. No subcutaneous emphysema or radiodense foreign body. IMPRESSION: No acute fracture or dislocation. <Electronically signed by Patrick Hebert > 03/16/21 1100
[2021-03-16] MEDS ORDERED: IBUPROFEN 800 MG TAB PO ONE (11:20)
[2021-03-16 11:53] VITALS: BP 132/88
== END 2021-03-16 12:11 | disposition home or self-care (01) ==
LOC: M ED 10:15
DX: S90.31XA Contusion of right foot, initial encounter (principal); S93.601A Unspecified sprain of right foot, initial encounter; W21.03XA Struck by baseball, initial encounter; Y92.830 Public park as the place of occurrence of the external cause; Y93.89 Activity, other specified; Y99.8 Other external cause status; F43.10 Post-traumatic stress disorder, unspecified; F41.9 Anxiety disorder, unspecified; F33.9 Major depressive disorder, recurrent, unspecified; M54.9 Dorsalgia, unspecified; G89.29 Other chronic pain; G47.33 Obstructive sleep apnea (adult) (pediatric); K21.9 Gastro-esophageal reflux disease without esophagitis; Z87.820 Personal history of traumatic brain injury; Z98.890 Other specified postprocedural states; Z79.899 Other long term (current) drug therapy

== ENCOUNTER 2021-10-18 01:32 | Emergency (ER) | payer OTHER ==
[~2021-10-18] VITALS: Ht 180.3 cm; Wt 113.6 kg
[2021-10-18 01:32] VITALS: BP 136/85
[~2021-10-18 01:32] MED LIST changes: -CLIN150C15 PO; +CLIN150C17 PO; -MAGN400T3 PO; +MAGN400T33 PO
[2021-10-18] MEDS ORDERED: TRAZ-252 PO (01:40)
[2021-10-18] MEDS ORDERED: AMOXICILLIN 500 MG CAP PO ONE (04:25)
[2021-10-18] MEDS ORDERED: KETOROLAC 60MG 2ML VIAL IM ONE (04:25)
[2021-10-18] MEDS ORDERED: AMOX500C PO (04:26)
== END 2021-10-18 04:38 | disposition home or self-care (01) ==
LOC: M ED 01:32
DX: J01.00 Acute maxillary sinusitis, unspecified (principal); Z20.822 Contact with and (suspected) exposure to COVID-19; G43.909 Migraine, unspecified, not intractable, without status migrainosus; Z79.899 Other long term (current) drug therapy
CPT/HCPCS: 96372; 99282; J1885; U0003

== ENCOUNTER 2022-03-08 15:10 | Emergency (ER) | payer OTHER ==
[~2022-03-08] VITALS: Ht 180.3 cm; Wt 109.1 kg
[~2022-03-08 15:10] MED LIST changes: +AMOX500C PO; -CEFD1CAP8 PO; +CEFD300C41 PO; +TRAZ-252 PO
[2022-03-08] MEDS ORDERED: CYCL-707 PO (20:00)
[2022-03-08] MEDS ORDERED: PRED20TA PO (20:00)
[2022-03-08 20:09] VITALS: BP 136/90
== END 2022-03-08 20:19 | disposition home or self-care (01) ==
LOC: M ED 15:10
DX: M54.6 Pain in thoracic spine (principal); R07.89 Other chest pain; M25.512 Pain in left shoulder; V86.96XA Unspecified occupant of dirt bike or motor/cross bike injured in nontraffic accident, initial encounter; Y92.9 Unspecified place or not applicable; Y93.9 Activity, unspecified; Y99.9 Unspecified external cause status; Z87.820 Personal history of traumatic brain injury; G47.30 Sleep apnea, unspecified; K21.9 Gastro-esophageal reflux disease without esophagitis; M54.9 Dorsalgia, unspecified; F41.9 Anxiety disorder, unspecified; F32.9 Major depressive disorder, single episode, unspecified; F43.10 Post-traumatic stress disorder, unspecified; Z79.899 Other long term (current) drug therapy

== ENCOUNTER → 2023-03-26 | Outpatient (REF) ==
[~2023-03-26] MED LIST changes: +CYCL-707 PO; +FLUT50SP17 NARES; -FLUTISP NARES; +PRED20TA PO
== END ==
LOC: M PLAIMG 11:42
PROVIDERS: ATTEND Internal Medicine
DX: M25.511 Pain in right shoulder (principal); M54.50 Low back pain, unspecified